=== PATIENT | male | born 1970 | race Caucasian/White ===

== ENCOUNTER 2019-02-18 02:40 | Emergency (ER) | payer BC ==
[~2019-02-18] VITALS: Ht 177.8 cm; Wt 97.5 kg
--- NOTE | 2019-02-18 03:10 | NUR ---
PT BIBFRIENDS C/O R SHOULDER PAIN FOLLOWING TRIP AND FALL. R SHOULDER DEFORMITY NOTED. PT AXO4. RESPIRATIONS EVEN AND UNLABORED. PT PUT ON THE SCRAP CARRIER AND PULSE OX.
--- NOTE | 2019-02-18 03:18 | NUR ---
XRAY AT BEDSIDE.
[2019-02-18] MEDS ORDERED: PROPOFOL 20 ML IV ONE ×2 (04:06→04:36)
--- NOTE | 2019-02-18 04:50 | NUR ---
ER MD, 2 RN, AND RT AT BEDSIDE FOR CONSCIOUS SEDATION.
--- NOTE | 2019-02-18 04:55 | NUR ---
PT AXO4. RESPIRATIONS EVEN AND UNLABORED. WILL CONTINUE TO MONITOR.
[2019-02-18] MEDS ORDERED: PROPOFOL 200 MG/20 ML VIAL IV ONE (05:00)
--- NOTE | 2019-02-18 05:25 | NUR ---
Patient discharged to home in stable condition. Written and verbal after care instructions given. Patient verbalizes understanding of instruction. IV removed. Catheter intact and site benign. Pressure and 4x4 applied to site. No bleeding noted. PT AXO4. AMBULATORY WITH STEADY GAIT.
[2019-02-18 05:46] VITALS: BP 144/101
== END 2019-02-18 05:47 | disposition home or self-care (01) ==
LOC: ER 02:52
DX: S43.084A Other dislocation of right shoulder joint, initial encounter (principal); F10.129 Alcohol abuse with intoxication, unspecified; Y90.9 Presence of alcohol in blood, level not specified; W01.0XXA Fall on same level from slipping, tripping and stumbling without subsequent striking against object, initial encounter; Y93.89 Activity, other specified; Y92.89 Other specified places as the place of occurrence of the external cause; Y99.8 Other external cause status
CPT/HCPCS: 23650; 73030 ×2; 99152; 99291; J2704 ×2; J7030; G0500